=== PATIENT | male | born 1990 | race Caucasian/White ===

== ENCOUNTER → 2021-11-17 | Outpatient (CLI) | payer OTHER ==
--- NOTE | 2021-11-17 17:02 | DIREP ---
PROCEDURE:MR FOOT WITHOUT CONTRAST [Right] TECHNIQUE:Sagittal T1 and inversion recovery; coronal T1, T2 and T2 fat sat; axial T1 fat-sat, proton density and T2 fat-sat sequences were obtained of the right forefoot. COMPARISON:None. INDICATIONS:M79.671 PAIN BASE OF TOES AND RADIATES INTO MIDDLE TOES, NO TRAUMA FINDINGS: Osseous structures: There is no fracture, marrow edema, destructive intraosseous lesion or periosteal elevation. The articular surfaces are smooth and congruent. Muscles and tendons: The extensor and flexor tendons are normal. The intrinsic muscles of the foot are normal. Ligaments: The Lisfranc ligament is intact. The collateral ligaments at the MTP joints and interphalangeal joints are normal. The deep intermetatarsal transverse ligament is normal. Miscellaneous: The subcutaneous tissues are normal. The neurovascular structures are normal. There is no soft tissue mass lesion or abnormal fluid collection. CONCLUSION:Normal MRI of the right forefoot and toes. Dictated by: Rasheed Mo M.D. on 11/17/2021 at 04:58 PM
== END | disposition home or self-care (01) ==
LOC: RAD 14:41
PROVIDERS: ATTEND Nurse Practitioner Family
DX: M79.671 Pain in right foot (principal)
CPT/HCPCS: 73718

== ENCOUNTER → 2022-04-06 | Outpatient (CLI) | payer OTHER ==
[2022-04-06 08:54] LABS: BASOPHIL % 0.1 % (0.0-0.2); EOSINOPHIL % 0.1 % (0.0-5.0); LYMPHOCYTES # 2.37 10^3/uL1 (1.0-4.8); LYMPHOCYTES % 28.4 % (24.0-44.0); MEAN CORP HGB 32.1 pg (26-34); MONOCYTES # 0.7 10^3/uL (0.3-0.8); MONOCYTES % 7.8 % (5.0-12.0); NEUTROPHIL # 5.3 10^3/uL (1.8-7.7); NEUTROPHILS % 62.9 % (41.0-85.0); RED CELL DISTRIBUTION WIDTH 11.9 % (11.5-14.5)
[2022-04-06 09:11] LABS: CARBON DIOXIDE 30.3 mmol/L (20.0-32)
== END | disposition home or self-care (01) ==
LOC: NPLAB 08:37
PROVIDERS: ATTEND Nurse Practitioner Family
DX: Z01.812 Encounter for preprocedural laboratory examination (principal)
CPT/HCPCS: 36415; 80053; 85025

== ENCOUNTER → 2022-12-06 | Outpatient (CLI) | payer OTHER ==
[2022-12-06 09:06] LABS: BASOPHIL # 0.1 10^3/uL (0.0-0.1); BASOPHIL % 1.4 % (0.0-0.2); EOSINOPHIL # 0.1 10^3/uL (0.0-0.2); EOSINOPHIL % 1.2 % (0.0-5.0); HEMATOCRIT(ML) 42.9 % (37.0-53.0); LYMPHOCYTES % 31.3 % (24.0-44.0); MEAN CORP HGB 32.3 pg (26-34); MEAN CORP VOLUME 92.5 fL (78-100); MONOCYTES # 0.9 10^3/uL (0.3-0.8); MONOCYTES % 12.2 % (5.0-12.0); NEUTROPHIL # 4.1 10^3/uL (1.8-7.7); NEUTROPHILS % 53.5 % (41.0-85.0); PLATELET COUNT 334 10^3/uL (150-400); RED BLOOD CELL 4.64 10^6/uL (4.50-5.90); RED CELL DISTRIBUTION WIDTH 11.9 % (11.5-14.5); WHITE BLOOD CELL 7.7 10^3/uL (4.5-11.0)
[2022-12-06 09:08] LABS: +ADD MANUAL DIFF(NO CHRG) NO
[2022-12-06 09:29] LABS: ALBUMIN(ML) 3.9 g/dL (3.4-5.0); ALBUMIN/GLOBULIN RATIO 1.147; ANION GAP 13.7; CALCIUM 9.1 mg/dL (8.4-10.5); CREATININE SERUM 0.93 mg/dL (0.59-1.40); POTASSIUM 3.7 mmol/L (3.6-5.2)
== END | disposition home or self-care (01) ==
LOC: NPLAB 08:46
PROVIDERS: ATTEND Nurse Practitioner Family
DX: Z13.0 Encounter for screening for diseases of the blood and blood-forming organs and certain disorders involving the immune mechanism (principal); Z13.1 Encounter for screening for diabetes mellitus; Z13.29 Encounter for screening for other suspected endocrine disorder; R21 Rash and other nonspecific skin eruption
CPT/HCPCS: 36415; 80053; 84439; 84443; 85025; 85651; 86038; 86225; 86235; 86256

== ENCOUNTER → 2023-05-28 | Outpatient (CLI) | payer OTHER | END | disposition home or self-care (01) | LOC: RAD 08:44 | PROVIDERS: ATTEND Internal Medicine | DX: R06.02 Shortness of breath (principal) | CPT/HCPCS: 71046 ==